=== PATIENT | female | born 1950 | race Caucasian/White ===

== ENCOUNTER 2017-10-08 09:32 | Emergency (ER) | payer OTHER ==
[~2017-10-08] VITALS: Ht 160 cm; Wt 90.3 kg
[~2017-10-08 09:32] MED LIST: ACETAZOLAMIDE250 MG PO; ASPIRIN EC81 M1 PO; LISINOPRIL10 MG PO; LOSARTAN; NOVAPLUS V0.09 MG/Ac INH; PREDNICOT20 MG PO; PREDNISONE10 MG PO; SIMVASTATIN40 MG PO; SYNTHROID0.112 MG PO; TESSALON PERLE100 MG PO; ZITHROMAX Z-PA250 M1 PO
[2017-10-08 12:20] VITALS: BP 114/56
--- NOTE | 2017-10-08 12:25 | ED MVC/FALL/TRAUMA COMPLAINT ---
History of Present Illness General Chief Complaint: Fall Stated Complaint: MUSCLE SPASMS S/P FALL YESTERDAY Source: patient Exam Limitations: no limitations Vital Signs & Intake/Output Vital Signs & Intake/Output Vital Signs Date Time Temp Pulse Resp B/P B/P Pulse O2 O2 Flow FiO2 Mean Ox Delivery Rate 10/08 1220 97.1 76 18 114/56 97 Room Air 10/08 0946 97.2 82 20 124/71 98 Room Air ED Intake and Output 10/09 0000 10/08 1200 Intake Total Output Total Balance Patient 199 lb Weight Weight Reported by Patient Measurement Method Allergies Coded Allergies: NO KNOWN ALLERGIES (08/24/13) Reconcile Medications Aspirin (Ecotrin*) 81 MG TABLET.DR 1 TAB PO DAILY PROPHO (Reported) Levothyroxine Sodium (Synthroid) 0.112 MG TAB 1 TAB PO DAILY AC THYROID ( Reported) [LOSARTAN] HTN (Reported) Meloxicam (Mobic) 15 MG TABLET 1 TAB PO DAILY PRN PAIN Methocarbamol (Robaxin) 500 MG TABLET 1 TAB PO TID PRN MUSCLE SPASMS Simvastatin 40 MG TABLET 1 TAB PO QPM CHOLESTEROL (Reported) Triage Note: PT STATES SHE FELL ON ICE YESTERDAY AND SHE KEEPS GETTING MUSCLE SPASMS DOWN RIGHT LEG. PT C/O PAIN IN RIGHT LEG, RIGHT KNEE, LEFT SHOULDER. DENIES HEADSTRIKE, DENIES LOC. TOOK MOTRIN WITHOUT RELIEF Triage Nurses Notes Reviewed? yes Onset: Gradual Duration: day(s): (1) Timing: no prior history HPI: Patient is a 67-year-old female presenting to the emergency department with chief complaint of right knee pain and low back pain after slipping on ice yesterday evening. Patient presents she was walking out to her car accidentally slipped on black ice. No head injury or loss of consciousness. She does report that she landed directly on her buttock region. She also twisted her right knee on the way down. She was able to get up and go to work afterwards. She's been using Tylenol without relief. She also had a leftover Percocet from a previous procedure that she took without relief. Denies any visual changes nausea vomiting fevers or chills chest pain or shortness of breath. Pain is worse with any type of movement of the affected areas. Denies numbness or tingling. Denies urinary incontinence or retention. (MannyFelisa Brasher) Past History Travel History Traveled to [place] past 21 day No Medical History Any Pertinent Medical History? see below for history Neurological: seizure Cardiovascular: hypertension, hyperlipidemia Surgical History Surgical History: non-contributory Psychosocial History What is your primary language Ukrainian Tobacco Use: Never used ETOH Use: occasional use Illicit Drug Use: denies illicit drug use Family History Family History, If Any: SISTER FH: CHF (congestive heart failure) FATHER FH: CHF (congestive heart failure) Hx Contributory? No (Felisa Torres) Review of Systems Review of Systems Constitutional: Reports: no symptoms. Comments Review of systems: See HPI, All other systems negative. Constitutional, no chills fever or weight loss HEENT: No visual changes no sore throat no congestion Cardiovascular: No chest pain ,palpitation Skin, no jaundice no rashes Respiratory: No dyspnea cough sputum or hemoptysis GI: No nausea no vomiting : No dysuria No hematuria Muscle skeletal: no neck pain, Neurologic: No numbness no confusion, no headache Psych: No stress anxiety or depression,. Heme/endocrine: No bruising no bleeding no polyuria or polydipsia Immunology: No splenectomy or history of AIDS (Felisa Torres) Physical Exam Physical Exam General Appearance: well developed/nourished, no apparent distress, alert, awake , comfortable Comments: Well-developed well-nourished person in no acute distress HEENT: Atraumatic, normocephalic Neck: Supple, no lymphadenopathy, normal range of motion without pain or tenderness, no C-spine tenderness. Full range of motion. Back: Tender to palpation over the coccyx in the lumbar paraspinal muscles. Near full range of motion somewhat limited secondary to pain. Negative modified straight leg raise bilaterally. Cardiovascular: Regular rate and rhythms no murmurs rubs or gallops, normal JVP Respiratory: Chest nontender. No respiratory distress.breath sounds clear to auscultation bilaterally Extremity: Medial tenderness to palpation over the right patella. Full range of motion of right knee without difficulty. No signs of edema or ecchymosis. Negative anterior and posterior drawer test of the right patella. Full range of motion of upper extremities without difficulty or pain. Nontender to palpation over the acromioclavicular joints bilaterally. Neuro: Alert oriented x3, motor sensory normal Skin: No appreciable rash on exposed skin, skin is warm and dry. Psych: Mood and affect is normal, memory and judgment is normal. Core Measures ACS in differential dx? No CVA/TIA Diagnosis No Sepsis Present: No Sepsis Focused Exam Completed? No (Manny MAHMOOD,Felisa) Progress Differential Diagnosis: knee contusion, patellar fracture, ligamentous injury, coccyx fracture, muscle strain, contusion Plan of Care: Orders Procedure Date/time Status XRY-SACRUM AND COCCYX 10/08 1224 Active XRY-KNEE COMPLETE RIGHT 10/08 1224 Active Diagnostic Imaging: Viewed by Me: Radiology Read. Discussed w/RAD: Radiology Read. Radiology Impression: PATIENT: SÁNCHEZ HERBERT PRESENT AGE: 67 PATIENT ACCOUNT NO: [id number] : 48 LOCATION: [facility] ORDERING PHYSICIAN: Felisa MAHMOOD SERVICE DATE: 10/08/17 EXAM TYPE: RAD - XRY-SACRUM AND COCCYX EXAMINATION: XR SACRUM AND COCCYX CLINICAL INFORMATION: Status post fall. COMPARISON: There are no prior studies for comparison. TECHNIQUE: 2 views of the sacrum and 2 views of the coccyx were obtained. FINDINGS: There are no fractures. No bone, joint or soft tissue abnormality is demonstrated. IMPRESSION: Unremarkable examination. DICTATED BY: Katey Robles MD DATE/TIME DICTATED:10/08/171305 [employer] B[employer] CONSULTANT:STU DATE/ TIME TRANSCRIBED:10/08/171305 CONFIDENTIAL, DO NOT COPY WITHOUT APPROPRIATE AUTHORIZATION. <Electronically signed in Other Vendor System> SIGNED BY: Katey Robles MD 10/08/17 1311, PATIENT: SÁNCHEZ HERBERT PRESENT AGE: 67 PATIENT ACCOUNT NO: [id number] : 48 LOCATION: ER ORDERING PHYSICIAN: Felisa MAHMOOD SERVICE DATE: 10/08/17 EXAM TYPE: RAD - XRY-SACRUM AND COCCYX EXAMINATION: XR SACRUM AND COCCYX CLINICAL INFORMATION: Status post fall. COMPARISON: There are no prior studies for comparison. TECHNIQUE: 2 views of the sacrum and 2 views of the coccyx were obtained. FINDINGS: There are no fractures. No bone, joint or soft tissue abnormality is demonstrated. IMPRESSION: Unremarkable examination. DICTATED BY: Katey Robles MD DATE/TIME DICTATED:10/08/171305 [employer] BPM CONSULTANT: STU DATE/TIME TRANSCRIBED:10/08/171305 CONFIDENTIAL, DO NOT COPY WITHOUT APPROPRIATE AUTHORIZATION. <Electronically signed in Other Vendor System> SIGNED BY: Katey Robles MD 10/08/17 1311 (Felisa Torres) Departure Departure Time of Disposition: 1326 Disposition: HOME OR SELF CARE Condition: Stable Clinical Impression Primary Impression: Knee contusion Qualifiers: Encounter type: initial encounter Laterality: right Qualified Code: S80.01XA - Contusion of right knee, initial encounter Secondary Impressions: Back pain Qualifiers: Back pain location: low back pain Chronicity: acute Back pain laterality: bilateral Sciatica presence: without sciatica Qualified Code: M54.5 - Low back pain Referrals: Aleena Negron APRN (PCP/Family) Additional Instructions: Follow-up with your primary care physician in 5-7 days, call to make an appointment. Apply ice to affected area. Take Robaxin help with muscle spasms. TAKE MOBIC FOR PAIN PRESCRIBED. Departure Forms: Customer Survey General Discharge Information Prescriptions: Current Visit Scripts Methocarbamol (Robaxin) 1 TAB PO TID PRN MUSCLE SPASMS #10 TAB Meloxicam (Mobic) 1 TAB PO DAILY PRN PAIN #20 TAB (Felisa Torres) PA/COLLECTIONS ASSISTANT Co-Sign Statement Statement: ED Attending supervision documentation- X I saw and evaluated the patient. I have also reviewed all the pertinent lab results and diagnostic results. I agree with the findings and the plan of care as documented in the PA's/COLLECTIONS ASSISTANT's documentation. [] I have reviewed the ED Record and agree with the PA's/COLLECTIONS ASSISTANT's documentation. [] Additions or exceptions (if any) to the PAs/COLLECTIONS ASSISTANT's note and plan are summarized below: [] (Radha GARCIA,Emmanuel)
--- NOTE | 2017-10-08 13:11 | RADIOLOGY REPORT ---
EXAMINATION: XR SACRUM AND COCCYX CLINICAL INFORMATION: Status post fall. COMPARISON: There are no prior studies for comparison. TECHNIQUE: 2 views of the sacrum and 2 views of the coccyx were obtained. FINDINGS: There are no fractures. No bone, joint or soft tissue abnormality is demonstrated. IMPRESSION: Unremarkable examination.
--- NOTE | 2017-10-08 13:13 | RADIOLOGY REPORT ---
EXAMINATION: XR KNEE, RIGHT CLINICAL INFORMATION: Status post fall. COMPARISON: There are no prior studies for comparison. TECHNIQUE: Four views of the right knee. FINDINGS: Mild medial joint compartment narrowing is noted with bulky medial and lateral osteophytes present. No cortical defects are noted throughout the bony structures to suggest acute fracture. Incidental note is made of tension osteophyte in the anterior aspect of the patella at the attachment sites of the patellar and quadriceps tendons. No suprapatellar knee joint effusion is noted. IMPRESSION: No radiographic evidence of acute fracture or subluxation is noted at this time.
[2017-10-08] MEDS ORDERED: MOBIC15 M1 PO (13:34)
[2017-10-08] MEDS ORDERED: ROBAXIN500 M1 PO (13:34)
== END 2017-10-08 13:47 ==
LOC: ERH 09:32
DX: S80.01XA Contusion of right knee, initial encounter (principal); M54.5 Low back pain; W00.0XXA Fall on same level due to ice and snow, initial encounter; Y93.01 Activity, walking, marching and hiking; Y92.9 Unspecified place or not applicable
CPT/HCPCS: 72220; 73562-RT